=== PATIENT | female | born 1975 | race African-American/Black ===

== ENCOUNTER 2016-07-24 08:30 | Inpatient (IN) | payer BC ==
[~2016-07-24] VITALS: Ht 167.6 cm; Wt 82.7 kg
[~2016-07-24 08:30] MED LIST: ALBUTEROL SULF8.5 GM IH; ALBUTEROL2.5 MG/0.5 IH; BENADRYL ALLERG25 MG PO; FLONASE16 G1 BOTH NARES; FLOVENT 11120 INHALA IH; LINZESS290 MCG PO; MECLIZINE HCL25 MG PO; MOBIC7.5 MG PO; MUCUS ER600 MG PO; NAPROSYN500 MG PO; NO HOME MEDS; PREDNISONE; PREDNISONE20 MG PO; PROMETHAZINE HC25 M1 PO; ZOLPIDEM TARTRAT5 MG PO
[2016-07-24 09:30] LABS: EOSINOPHIL (%) 1.4 % (0-5); EOSINOPHIL COUNT 0.1 K/uL (0-0.3); IMMATURE GRANULOCYTE (%) 0.3 % (0.0-0.7); INSTRUMENT ABS NEUTROPHIL CT 5.1 K/uL; LYMPHOCYTE COUNT 1.7 K/uL (1.0-2.8); MCH 28.2 PG (29.0-34.0); MCHC 31.8 G/DL (30.0-36.0); MCV 88.9 FL (83-99); MEAN PLAT.VOLUME 10.8 uM^3 (9.5-12.4); MONOCYTE (%) 9.7 % (3-12); MONOCYTE COUNT 0.8 K/uL (0-0.8); NEUTROPHIL (%) 66.1 % (45-76); NEUTROPHIL COUNT 5.1 K/uL (1.8-6.4); PLATELET COUNT 294 K/uL (156-360); RBC DIS.WIDTH-CV 13.2 % (11.8-14.6); RBC DIS.WIDTH-SD 43.2 % (39-53); WHITE BLOOD COUNT 7.8 K/uL (4.1-10.2)
[2016-07-24 09:42] LABS: CHLORIDE 106 mEq/L (99-109); POTASSIUM 3.8 mEq/L (3.7-5.4); SODIUM 138 mEq/L (136-147)
[2016-07-24 09:44] LABS: GLUCOSE 89 mg/dL (70-99)
[2016-07-24 09:45] LABS: ANION GAP 9 MEQ/L (2-14)
[2016-07-24 09:48] LABS: GFR ESTIMATE (CALCULATED) > 59 mL/min/; UREA NITROGEN (BUN) 9 mg/dL (9-23)
[2016-07-24 10:23] LABS: INFLUENZA A VIRAL ANTIGEN NEGATIVE; INFLUENZA B VIRAL ANTIGEN NEGATIVE
[2016-07-24 13:44] LABS: APPEARANCE CLEAR/COLORLESS; RED CELL AREA COUNTED 18; RED CELL COUNT 24 /MM^3 (0-1); RED CELL DILUTION 1
[2016-07-24 13:45] LABS: WBC AREA COUNTED 18; WBC DILUTION 1; WHITE CELL COUNT 385 /MM^3 (0-5); WHITE CELL RAW COUNT 693
[2016-07-24 14:13] LABS: CSF EOSINOPHILS 0 % (0-25); MONO RAW COUNT 98; MONONUCLEAR WBC'S 98 % (50-90); POLY RAW COUNT 2; POLYNUCLEAR WBC'S 2 % (0-3)
[2016-07-24 14:15] LABS: APPEARANCE (RECHECK) CLEAR/COLORLESS; CSF TUBE NUMBER (RECHECK) TUBE #1
[2016-07-24 14:21] LABS: RED CELL AREA COUNTED 18; RED CELL COUNT (RECHECK) 9 /MM^3 (0-1); RED CELL DILUTION 1
[2016-07-24] MEDS ORDERED: SERTRALINE HCL50 MG PO (15:31)
[2016-07-24] MEDS ORDERED: DULERA 200 MCG/13 GM IH (15:32)
[2016-07-24] MEDS ORDERED: DESYREL100 MG PO (15:32)
[2016-07-24] MEDS ORDERED: VENTOLIN HFA18 GM IH (15:33)
[2016-07-24] MEDS ORDERED: SINGULAIR10 MG PO (15:34)
[2016-07-24] MEDS ORDERED: LORAZEPAM0.5 MG PO (15:35)
[2016-07-24 20:22] VITALS: BP 104/56
[2016-07-25 00:28] VITALS: BP 101/62
[2016-07-25 03:57] VITALS: BP 94/51
[2016-07-25 07:54] VITALS: BP 120/60
[2016-07-25 08:53] LABS: HEMATOCRIT 33.4 % (36.0-46.0); MCH 28.3 PG (29.0-34.0); MCHC 31.7 G/DL (30.0-36.0); MCV 89.1 FL (83-99); MEAN PLAT.VOLUME 10.2 uM^3 (9.5-12.4); PLATELET COUNT 257 K/uL (156-360); RBC DIS.WIDTH-CV 13.2 % (11.8-14.6); RBC DIS.WIDTH-SD 43.3 % (39-53); RED BLOOD COUNT 3.75 M/uL (3.80-5.20); WHITE BLOOD COUNT 6.2 K/uL (4.1-10.2)
[2016-07-25 08:54] LABS: ANION GAP 5 MEQ/L (2-14); CHLORIDE 108 MEQ/L (99-109); GFR ESTIMATE (CALCULATED) > 59 mL/min/; GLUCOSE 88 mg/dL (70-99); POTASSIUM 3.8 MEQ/L (3.7-5.4); SAMPLE HEMOLYSIS CHECK 0; SAMPLE ICTERIC CHECK 0; SAMPLE LIPEMIA CHECK 0; SODIUM 138 MEQ/L (136-147); UREA NITROGEN (BUN) 6 mg/dL (9-23)
[2016-07-25 11:08] LABS: TREPONEMA ANTIBODY NEGATIVE (NEGATIVE)
[2016-07-25 11:12] LABS: LYME DISEASE SEROLOGY SCREEN NEGATIVE (NEGATIVE)
[2016-07-25 11:20] VITALS: BP 130/66
[2016-07-25 14:13] LABS: HSV CSF Spec Source CSF (())
[2016-07-25 15:35] VITALS: BP 140/58
[2016-07-26 08:09] VITALS: BP 93/54
[2016-07-26 11:28] VITALS: BP 111/63
[2016-07-26 15:16] VITALS: BP 114/65
[2016-07-26 19:50] VITALS: BP 111/64
[2016-07-27 00:14] VITALS: BP 121/65
[2016-07-27 03:23] VITALS: BP 92/57
[2016-07-27 08:19] VITALS: BP 106/59
[2016-07-27] MEDS ORDERED: HYDROCORTISON28.4 GM TP (08:30)
[2016-07-27] MEDS ORDERED: TRAMADOL HCL50 MG PO (08:30)
[2016-07-27 11:40] VITALS: BP 95/55
[2016-07-27 13:55] LABS: ANTI-NUCLEAR AB SCRN/RFLX(ANA) NONREACTIVE (NONREACTIVE)
[2016-07-28 01:08] LABS: QGTB-NIL 0.11 IU/mL (()); TB AG-NIL 4.54 IU/mL (())
== END 2016-07-27 13:56 | disposition home or self-care (01) | DRG 99 ==
LOC: EME 08:30 → 5SOUTH 14:28 → EDOF 14:28 → 5SOUTH 16:59
PROVIDERS: Emergency Medicine; Internal Medicine; Internal Medicine Infectious Disease
PROC: 009U3ZX Drainage of Spinal Canal, Percutaneous Approach, Diagnostic (ICD-10-PCS; principal; 2016-07-24)
DX: G03.9 Meningitis, unspecified (principal); J45.909 Unspecified asthma, uncomplicated; R76.11 Nonspecific reaction to tuberculin skin test without active tuberculosis; R21 Rash and other nonspecific skin eruption
CPT/HCPCS: 70450; 80048; 82164 90; 82945; 84157; 85025; 85027; 86038; 86235; 86480 90; 86618; 86658 90; 86780; 87040; 87070; 87205; 87502; 87529 90; 89051; 99202; 99281; 99285; J0133; J0696; J1170; J1200; J1650; J2270; J2405; J3370; J7030; J7050

== ENCOUNTER 2017-02-12 19:42 | Emergency (ER) | payer BC ==
[~2017-02-12] VITALS: Ht 167.6 cm; Wt 81.8 kg
[~2017-02-12 19:42] MED LIST changes: +DESYREL100 MG PO; +DULERA 200 MCG/13 GM IH; +HYDROCORTISON28.4 GM TP; +LORAZEPAM0.5 MG PO; +SERTRALINE HCL50 MG PO; +SINGULAIR10 MG PO; +TRAMADOL HCL50 MG PO; +VENTOLIN HFA18 GM IH
[2017-02-12] MEDS ORDERED: PREDNISONE20 MG PO (20:18)
[2017-02-12 21:13] VITALS: BP 122/80
== END 2017-02-12 21:14 | disposition home or self-care (01) ==
LOC: EME → EDBD 19:42 → EME 19:42
DX: J45.909 Unspecified asthma, uncomplicated (principal); F32.9 Major depressive disorder, single episode, unspecified
CPT/HCPCS: 80048; 85027; 99281; 99284; J1100; J7644

== ENCOUNTER 2017-06-11 23:42 | Emergency (ER) | payer BC ==
[~2017-06-11] VITALS: Ht 167.6 cm; Wt 84.4 kg
[2017-06-11 23:55] VITALS: BP 124/76
== END 2017-06-12 01:50 | disposition left against medical advice (07) ==
LOC: EME 23:42
DX: G43.909 Migraine, unspecified, not intractable, without status migrainosus (principal); M43.6 Torticollis; Z53.21 Procedure and treatment not carried out due to patient leaving prior to being seen by health care provider